=== PATIENT | female | born 1930 | race African-American/Black ===

== ENCOUNTER 2017-04-13 16:08 | Inpatient (IN) | payer OTHER ==
[~2017-04-13] VITALS: Ht 152.4 cm; Wt 55.2 kg
[~2017-04-13 16:08] MED LIST: ACETAMINOPHEN325 M1 PO; AMLODIPINE BESYL5 M1 PO; APAP650 PO; ARICEPT 5 MG TAB5 MG PO; ASPIR-LOW81 MG PO; ATIVAN0.5 MG PO; CALMOSEPTINE O3.5 GM TP; CIPRO250 M1 PO; CIPROFLOXACIN500 M1 PO; CLARITIN10 MG PO; CLONIDINE; CLONIDINE HCL0.2 M2 PO; CLONIDINE0.1; COLACE100 MG PO; DUONEB 2.5-0.5 M3 ML INH; ENOXAPARIN30 MG/0.1 SUBQ; ESTRADIOL VAG; FLAGYL500 MG PO; FLORANEX TABLE1 EACH PO; GABAPENTIN250 MG/51 PO; GUAIFENESIN ER600 MG PO; HYDROCHLOROTH12.5 M1 PO; HYDROCORTISONE30 G9 TOP; KEFLEX500 MG PO; KEPPRA 500 MG500 M2 PO; LASIX 20 MG TAB20 MG PO; LEVAQUIN 500 M500 M2 PO; LISINOPRIL10 MG PO; LOPERAMIDE 2 MG2 M1 PO; MELATONIN3 MG PO; MI ACID SUSPEN355 ML PO; MILK OF MA2400 MG/10 PO; MIRALAX255 GM PO; NAMENDA XR21 MG PO; NORVASC 5 MG TAB5 MG PO; NORVASC5 MG PO; OMEPRAZOLE20 M2 PO; PRAMIPEXOLE D0.25 MG PO; PREMARIN0.3 MG VAG; PREPARATION H O28 GM RECTAL; PROTONIX40 M2 PO; PROZAC 10 MG CA10 MG; PROZAC20 MG PO; SENNA8.6 MG PO; SEROQUEL 25 MG25 M1 PO; SEROQUEL 50 MG50 MG PO; SIMETHICON CHEW80 M1 PO; SIMETHICON CHEW80 MG PO; SINEMET 25-2501 EAC1 PO; TESSALON PERLE100 MG PO; TRAMADOL 50 MG50 MG; TRIPLE ANTIBIO1 EAC1 TP; TYLENOL325 MG PO; ZPAK PO
[2017-04-13 16:09] VITALS: BP 105/48
[2017-04-13 17:08] LABS: HEMATOCRIT 23.9 % (37.0-47.0); HEMOGLOBIN 7.6 gm/dL (12.0-15.0); MCH 27.2 pg (26.0-34.0); MCHC 31.6 g/dL (28.0-37.0); MCV 86.1 fL (80.0-100.0); PLATELET COUNT 261 thou/uL (150-400); RBC 2.78 mil/uL (4.20-5.00); RDW 19.2 % (10.5-14.5); WBC 11.3 thou/uL (4.0-11.0)
[2017-04-13 17:10] LABS: MANUAL DIFF YES
[2017-04-13 17:13] LABS: APTT 24.5 Seconds (24.5-32.8); INR 1.1; PROTIME 11.8 Seconds (9.3-11.4)
[2017-04-13 17:19] LABS: ANION GAP 12 mmol/L (7-16); BUN 28 mg/dL (7-18); CALCIUM 8.4 mg/dL (8.5-10.1); CHLORIDE 108 mmol/L (98-107); CO2 21 mmol/L (21-32); CREATININE 1.9 mg/dL (0.6-1.0); GLUCOSE 85 mg/dL (74-106); POTASSIUM 3.5 mmol/L (3.5-5.1); SODIUM 141 mmol/L (136-145)
[2017-04-13 17:23] LABS: ALKALINE PHOSPHATASE 91 U/L (46-116); DIRECT BILIRUBIN < 0.1 mg/dL (<0.1-0.3); SGOT 15 U/L (15-37); TOTAL BILIRUBIN 0.3 mg/dL (<0.1-1.0); TOTAL PROTEIN 7.4 g/dL (6.4-8.2)
[2017-04-13 17:39] LABS: SGPT < 6 U/L (30-65)
[2017-04-13 17:40] LABS: ABSOLUTE NEUTROPHILS 7.9 thou/uL (1.4-8.2); ANISOCYTOSIS 2+; TOTAL CELL COUNT 100
[2017-04-13 17:41] LABS: HYPOCHROMASIA 1+; MICROCYTES 1+; SCHISTOCYTES 1+
[2017-04-13] MEDS ORDERED: NORVASC5 MG PO (17:43)
[2017-04-13] MEDS ORDERED: HYDROCHLOROTH12.5 M1 PO (17:44)
[2017-04-13] MEDS ORDERED: NAMENDA 10 MG T10 MG PO (17:44)
[2017-04-13] MEDS ORDERED: SEROQUEL 50 MG50 MG PO (17:45)
[2017-04-13] MEDS ORDERED: FLORANEX GRANU1 EACH PO (17:46)
[2017-04-13] MEDS ORDERED: MI-ACID80 MG PO (17:49)
[2017-04-13 18:50] LABS: URINE BILIRUBIN NEGATIVE (Negative); URINE BLOOD NEGATIVE (Negative); URINE COLOR YELLOW; URINE GLUCOSE-RANDOM* NEGATIVE (Negative); URINE KETONES NEGATIVE (Negative); URINE NITRITE NEGATIVE (Negative); URINE PROTEIN (DIPSTICK) NEGATIVE (Negative); URINE SPECIFIC GRAVITY 1.015 (1.003-1.035); URINE UROBILINOGEN 0.2 E.U./dl (0.2-1.0)
[2017-04-13 19:04] LABS: SQUAMOUS 4-10 Moderate /LPF (0-3)
[2017-04-13 19:05] LABS: CASTS None Seen /LPF (None Seen); CRYSTALS None Seen /LPF (None Seen); URINE RBC None Seen /HPF (0-2); URINE WBC 0-5 Rare /HPF (0-5)
[2017-04-13 20:23] VITALS: BP 120/52
[2017-04-13 21:23] LABS: ABSOLUTE RETIC COUNT 0.0865 10^6/uL; OBSERVED RETIC COUNT 3.06 % (0.6-2.6)
[2017-04-13 22:10] LABS: % SATURATION 47 % (20-39); IRON 70 ug/dL (50-170); TIBC 148 ug/dL (250-450); UIBC 78 ug/dL
[2017-04-13 22:40] LABS: FOLIC ACID 5.6 ng/mL (8.6-58.9)
[2017-04-13 22:52] VITALS: BP 104/41
[2017-04-13 23:04] VITALS: BP 94/36
[2017-04-14 05:50] VITALS: BP 108/49
[2017-04-14 06:29] LABS: HEMOGLOBIN 8.6 gm/dL (12.0-15.0); MCH 27.9 pg (26.0-34.0); MCHC 32.9 g/dL (28.0-37.0); MCV 84.8 fL (80.0-100.0); RBC 3.07 mil/uL (4.20-5.00); WBC 9.2 thou/uL (4.0-11.0)
[2017-04-14 06:43] LABS: CALCIUM 8.2 mg/dL (8.5-10.1); CREATININE 1.6 mg/dL (0.6-1.0)
[2017-04-14 06:46] LABS: POTASSIUM 2.8 mmol/L (3.5-5.1)
[2017-04-14 08:00] VITALS: BP 114/41
[2017-04-14 15:47] LABS: HEMATOCRIT 26.6 % (37.0-47.0); HEMOGLOBIN 9.2 gm/dL (12.0-15.0)
[2017-04-14 16:00] VITALS: BP 116/56
[2017-04-14 19:36] VITALS: BP 101/48
[2017-04-15 04:48] VITALS: BP 118/60
[2017-04-15 06:02] LABS: ABSOLUTE NEUTROPHILS 5.8 thou/uL (1.4-8.2); BASOPHILS 0.4 % (0.0-2.0); EOSINOPHILS 1.9 % (0.0-3.0); HEMOGLOBIN 8.6 gm/dL (12.0-15.0); LYMPHOCYTES 26.5 % (24.0-44.0); MCH 28.3 pg (26.0-34.0); MCHC 33.2 g/dL (28.0-37.0); MCV 85.1 fL (80.0-100.0); MONOCYTES 9.6 % (1.0-8.0); POLYS 61.6 % (36.0-66.0); RBC 3.05 mil/uL (4.20-5.00); RDW 17.3 % (10.5-14.5); WBC 9.5 thou/uL (4.0-11.0)
[2017-04-15 06:04] LABS: MANUAL DIFF NO
[2017-04-15 06:11] LABS: CALCIUM 7.7 mg/dL (8.5-10.1); CREATININE 1.6 mg/dL (0.6-1.0); POTASSIUM 4.2 mmol/L (3.5-5.1)
[2017-04-15 07:18] LABS: ANISOCYTOSIS 1+; PLATELET COUNT 185 thou/uL (150-400)
[2017-04-15 09:35] VITALS: BP 120/53
[2017-04-15 16:45] VITALS: BP 117/64
[2017-04-15 19:38] VITALS: BP 124/60
[2017-04-16 05:07] VITALS: BP 122/65
[2017-04-16 06:24] LABS: CALCIUM 8.1 mg/dL (8.5-10.1); CREATININE 1.4 mg/dL (0.6-1.0); POTASSIUM 4.1 mmol/L (3.5-5.1)
[2017-04-16 06:53] LABS: HEMATOCRIT 26.3 % (37.0-47.0); HEMOGLOBIN 8.6 gm/dL (12.0-15.0); MCH 28.1 pg (26.0-34.0); MCHC 32.8 g/dL (28.0-37.0); MCV 85.7 fL (80.0-100.0); PLATELET COUNT 202 thou/uL (150-400); RBC 3.07 mil/uL (4.20-5.00); RDW 18.4 % (10.5-14.5); WBC 8.4 thou/uL (4.0-11.0)
[2017-04-16 06:56] LABS: MANUAL DIFF YES
[2017-04-16 07:59] LABS: ABSOLUTE NEUTROPHILS 5.7 thou/uL (1.4-8.2); NUCLEATED RBCS 1 /100WBC; TOTAL CELL COUNT 100
[2017-04-16 08:00] LABS: ANISOCYTOSIS 2+; POIKILOCYTOSIS 1+; POLYCHROMASIA OCCASIONAL; SCHISTOCYTES OCCASIONAL
[2017-04-16 08:12] VITALS: BP 141/61
[2017-04-16] MEDS ORDERED: CIPRO500 MG PO (10:05)
[2017-04-16] MEDS ORDERED: FOLIC ACID 1 MG1 MG PO (10:06)
== END 2017-04-16 12:00 | DRG 812 ==
LOC: ER 16:08 → EROBS 19:35 → 4S 19:35
PROVIDERS: Family Medicine; Internal Medicine Endocrinology, Diabetes & Metabolism; Nurse Practitioner; Nurse Practitioner Family
PROC: 30233N1 Transfusion of Nonautologous Red Blood Cells into Peripheral Vein, Percutaneous Approach (ICD-10-PCS; principal; 2017-04-14)
DX: D64.9 Anemia, unspecified (principal); N39.0 Urinary tract infection, site not specified; F20.0 Paranoid schizophrenia; I12.9 Hypertensive chronic kidney disease with stage 1 through stage 4 chronic kidney disease, or unspecified chronic kidney disease; N18.3 Chronic kidney disease, stage 3 (moderate); J45.909 Unspecified asthma, uncomplicated; H35.30 Unspecified macular degeneration; G20 Parkinson's disease; E86.0 Dehydration; E87.6 Hypokalemia; F02.80 Dementia in other diseases classified elsewhere, unspecified severity, without behavioral disturbance, psychotic disturbance, mood disturbance, and anxiety; F32.9 Major depressive disorder, single episode, unspecified; Z90.710 Acquired absence of both cervix and uterus; Z90.722 Acquired absence of ovaries, bilateral; Z88.0 Allergy status to penicillin; Z91.041 Radiographic dye allergy status; Z79.899 Other long term (current) drug therapy
CPT/HCPCS: 10195